=== PATIENT | female | born 1980 | race Asian ===

== ENCOUNTER 2021-07-11 15:42 | Emergency (ER) | payer OTHER ==
[~2021-07-11] VITALS: Ht 139.7 cm; Wt 61.7 kg
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
[2021-07-11 17:03] VITALS: BP 149/85
== END 2021-07-11 17:06 | disposition home or self-care (01) ==
LOC: ER 15:42
DX: S01.112A Laceration without foreign body of left eyelid and periocular area, initial encounter (principal); S40.012A Contusion of left shoulder, initial encounter; J45.909 Unspecified asthma, uncomplicated; Y04.2XXA Assault by strike against or bumped into by another person, initial encounter; Y93.89 Activity, other specified; Y92.89 Other specified places as the place of occurrence of the external cause; Y99.8 Other external cause status